=== PATIENT | male | born 1995 | race Caucasian/White ===

== ENCOUNTER 2024-10-11 07:10 | Emergency (ER) | payer SELFPAY ==
[~2024-10-11] VITALS: Ht 175.3 cm; Wt 96.2 kg
[2024-10-11 07:32] VITALS: O2SAT 96
[2024-10-11] MEDS ORDERED: AMOX1TAB16 PO (08:11)
[2024-10-11] MEDS ORDERED: TOPUD PO (08:11)
[2024-10-11] MEDS ORDERED: OFLO5DRO4 EACH EAR (08:11)
[2024-10-11] MEDS: ACETAMINOPHEN 325MG TABLET PO ONE (08:18)
[2024-10-11 08:25] VITALS: BP 115/84; PULSE 74; RESP 19; TEMP 36.7; O2SAT 97
== END 2024-10-11 09:43 | disposition home or self-care (01) ==
LOC: ER 07:28
DX: H66.93 Otitis media, unspecified, bilateral (principal); H60.393 Other infective otitis externa, bilateral
CPT/HCPCS: 99283